=== PATIENT | male | born 1980 | race African-American/Black ===

== ENCOUNTER 2024-01-28 06:20 | Day surgery (SDC) | payer OTHER ==
[2024-01-27 15:51] VITALS: BMI 34.8
[2024-01-28] MEDS ORDERED: Sodium Chloride 0.9% 100 ML ONE (06:58)
[2024-01-28] MEDS ORDERED: CEFAZOLIN 2 GM VIAL ONE (06:58)
[2024-01-28] MEDS ORDERED: Bupivacaine PF 0.5% 30 ML VIAL ONE (07:03)
[2024-01-28] MEDS ORDERED: fentaNYL 50 mcg/mL 1 mL Vial ONE (07:03)
[2024-01-28] MEDS ORDERED: Midazolam HCl 2 mg/2 ml Vial ONE (07:03)
[2024-01-28 07:10] LABS: #Basophils 0.05 10x3/uL (0.0-0.2); %Basophils 0.7 % (0.0-1.0); %Eosinophils 2.4 % (0.0-10.0); %Lymphocytes 36.5 % (21.0-51.0); %Monocytes 10.1 % (0.0-10.0); %Neutrophils 49.6 % (42.0-75.0); Hemoglobin 15.9 g/dL (14.0-18.0); Mean Corpuscular HGB CONC 33.1 g/dL (32.0-36.0); Mean Corpuscular Hemoglobin 30.6 pg (27.0-31.0); Mean Corpuscular Volume 92.3 fL (78.0-98.0); Mean Platelet Volume 9.6 fL (7.4-10.4); Platelet Count 277 10x3/uL (130-400); RBC Distribution Width 11.9 % (11.5-14.5)
[2024-01-28] MEDS ORDERED: Fentanyl 250 MCG/5 ML VIAL ONE (07:22)
[2024-01-28] MEDS ORDERED: PROPOFOL 20 ML ONE (07:22)
[2024-01-28] MEDS ORDERED: PHENYLEPHRINE-NS 100 MCG/ML 10 ML SYRINGE ONE (07:32)
[2024-01-28] MEDS ORDERED: Bupivacaine HCl 0.5%/Epinephrine 1:200,000/PF 30 ml Vial ONE (07:32)
[2024-01-28] MEDS ORDERED: Lidocaine 1% PF 5 ML VIAL ONE (07:32)
[2024-01-28 07:36] LABS: Anion Gap 10 mmol/L (10-20); BUN (Urea Nitrogen) 12 mg/dL (8.9-20.6); Calc. Creatinine Clearance 106 mL/min (70-130); Calcium 9.6 mg/dL (7.8-10.44); Carbon Dioxide 27 mmol/L (22-29); Chloride 106 mmol/L (98-107); Estimated GFR 61; Glucose 100 mg/dL (70-105); Potassium 4.4 mmol/L (3.5-5.1); Sodium 139 mmol/L (136-145)
[2024-01-28] MEDS ORDERED: Ketorolac Tromethamine 30 MG (1 mL) VIAL ONE (07:36)
[2024-01-28] MEDS ORDERED: Dexamethasone 20 MG/5 ML VIAL ONE (07:36)
[2024-01-28] MEDS ORDERED: Ondansetron PF 4 MG/2 ML Vial ONE (07:36)
[2024-01-28] MEDS ORDERED: ePHEDrine Sulfate 50 MG/10 ML VIAL ONE (07:47)
[2024-01-28] MEDS ORDERED: HYDROmorphone 2 MG/ML VIAL ONE (07:54)
[2024-01-28] MEDS ORDERED: HYDROmorphone 0.5 MG/0.5 ML SYRINGE ONE (10:24)
[2024-01-28] MEDS ORDERED: HYDROcodone/Acetaminophen 5/325 mg Tablet ONE (11:52)
== END 2024-01-28 12:15 | disposition home or self-care (01) ==
LOC: SDC 06:20
PROVIDERS: ATTEND Student in an Organized Health Care Education/Training Program
PROC: 0LQR0ZZ Repair Left Knee Tendon, Open Approach (ICD-10-PCS; principal; 2024-01-28)
DX: S86.812A Strain of other muscle(s) and tendon(s) at lower leg level, left leg, initial encounter (principal); W20.8XXA Other cause of strike by thrown, projected or falling object, initial encounter
CPT/HCPCS: 80048; 85025; C1713; J0665; J1100; J1170; J1885; J2250; J2405; J2704; J3010; L1830